=== PATIENT | female | born 1945 | race Caucasian/White ===

== ENCOUNTER 2021-01-18 15:00 | Emergency (ER) | payer MEDICARE, OTHER, SELFPAY ==
--- NOTE | 2021-01-18 15:06 | CTR_ITS ---
PROCEDURE INFORMATION: Exam: CT Cervical Spine Without Contrast Exam date and time: 01/18/2021 3:51 PM Age: 75 years old Clinical indication: Injury or trauma; Fall; Blunt trauma; Additional info: Neck pain following fall TECHNIQUE: Imaging protocol: Computed tomography images of the cervical spine without contrast. Radiation optimization: All CT scans at this facility use at least one of these dose optimization techniques: automated exposure control; mA and/or kV adjustment per patient size (includes targeted exams where dose is matched to clinical indication); or iterative reconstruction. COMPARISON: No relevant prior studies available. RADIATION DOSE METRICS: Total DLP (mGy-cm): 489.84 FINDINGS: Vertebrae: No acute fractures. No traumatic malalignment. Significant multilevel facet joint arthritis throughout the cervical spine worse on the left than the right. Mild anterolisthesis C4 on C5 and C5 on C6 secondary to facet joint arthritis about 2-3 mm at each level. Severe disc height loss at C6-C7 with vertebral endplate irregularities. No focal aggressive bone lesion. Soft tissues: Unremarkable. Lungs: Lung apices are normal. CT/CT cervical spin wo con* [id number] IMPRESSION: Negative for acute cervical spine fracture. Radiation Dose CTDIVOL = (mGy): DLP = 489.84 (mGy-cm)
--- NOTE | 2021-01-18 15:06 | XR_ITS ---
WS: [id number] Exam: XR hip LT 2-3V wo/w pel* [id number] Date/Time of Exam: 01/18/2021 3:52 PM Reason For Exam: fall/pain No fracture or dislocation. Moderate degenerative narrowing of the joint compartment. Normal soft tis sues. XR/XR hip LT 2-3V wo/w pel* [id number] IMPRESSION: 1. Moderate DJD. No fracture.
--- NOTE | 2021-01-18 15:06 | CTR_ITS ---
PROCEDURE INFORMATION: Exam: CT Lumbar Spine Without Contrast Exam date and time: 01/18/2021 3:51 PM Age: 75 years old Clinical indication: Injury or trauma; Fall; Blunt trauma (contusions or hematomas); Additional info: Pain following fall TECHNIQUE: Imaging protocol: Computed tomography images of the lumbar spine without contrast. Radiation optimization: All CT scans at this facility use at least one of these dose optimization techniques: automated exposure control; mA and/or kV adjustment per patient size (includes targeted exams where dose is matched to clinical indication); or iterative reconstruction. COMPARISON: No relevant prior studies available. RADIATION DOSE METRICS: Total DLP (mGy-cm): 2234.81 FINDINGS: Vertebrae: Severe diffuse arthritis of lumbar spine facet joints. No vertebral body fractures. No loss of vertebral body height. Lumbar spinal alignment is unremarkable. No aggressive bone lesion. L1-L2: No significant disc protrusion. No severe spinal canal stenosis. No significant neural foraminal narrowing. L2-L3: No significant disc protrusion. No spinal canal stenosis. No neural foraminal narrowing. L3-L4: No significant disc protrusion. No severe spinal canal stenosis. No significant neural foraminal narrowing. L4-L5: No significant disc protrusion. No severe spinal canal stenosis. No significant neural foraminal narrowing. L5-S1: No significant disc protrusion. No severe spinal canal stenosis. No significant neural foraminal narrowing. Vasculature: Moderate scattered atherosclerotic wall plaque abdominal aorta without aneurysm. Soft tissues: No lumbar paraspinal intramuscular hematoma. CT/CT lumbar spine wo con* [id number] IMPRESSION: Negative for acute lumbar spine fracture. Radiation Dose CTDIVOL = (mGy): DLP = 2234.81 (mGy-cm)
[2021-01-18 15:10] VITALS: BP 151/84; PULSE 68; RESP 16; TEMP 36.7; O2SAT 95; BMI 24.9
--- NOTE | 2021-01-18 16:02 | XR_ITS ---
WS: [id number] Exam: XR chest 1V portable [id number] Date/Time of Exam: 01/18/2021 4:09 PM Reason For Exam: dyspnea/cough Comparison 08/09/2017. The lungs are clear and fully expanded. Unremarkable cardiomediastinal structures and regional bony e lements. No pleural effusions. XR/XR chest 1V portable [id number] IMPRESSION: 1. No acute cardiopulmonary finding.
--- NOTE | 2021-01-18 16:02 | ECG_ITS ---
[facility] Test Date: 2021-01-18 Pat Name: Patt Ricks Department: Room: Gender: Female Service Desk Technician: : 1945 Requested By: Ross Schwarz Order Number: [id number] Reading MD: RUY WILLIS Measurements Intervals Elora Rate: 73 P: 48 SC: 196 QRS: -33 QRSD: 83 T: 48 QT: 400 QTc: 441 Interpretive Statements SINUS RHYTHM MARKED LEFT AXIS DEVIATION [QRS AXIS < -30] LOW QRS VOLTAGE IN PRECORDIAL LEADS [QRS DEFLECTION < 1.0 mV IN CHEST LEADS] MINIMAL VOLTAGE CRITERIA FOR LVH, CONSIDER NORMAL VARIANT [MEETS CRITERIA IN ONE OF: R(aVL), S(V1), R(V5), R(V5/V6)+S(V1)] POSSIBLE ANTERIOR MYOCARDIAL INFARCTION [30 ms Q WAVE IN V3/V4, OR R < 0.2 mV IN V4], PROBABLY OLD Compared to ECG 08/09/2017 01:05:45 Left-axis deviation now present Low QRS voltage now present Myocardial infarct finding still present Electronically Signed On 01-18-2021 20:07:26 COORDINATOR OF GENETIC SERVICES by RUY WILLIS [id number]
[2021-01-18 16:04] VITALS: O2SAT 97
--- NOTE | 2021-01-18 17:00 | ED_ITS ---
HPI - Fall General: Chief Complaint: Fall Stated Complaint: fall, left hip, lower back , neck pain Time Seen by Provider: 01/18/21 15:38 History of Present Illness: HPI Narrative: 75-year-old female who slipped and fell on the ice last week. She states she was able to get in until today. She has some back pain where she landed on the ice is painful when she takes a deep breath. She did strike her head she did not get knocked out there is no loss of consciousness. She is otherwise been ambulatory without difficulty. Also complaining some hip pain. Is not on any anticoagulants on a long-term basis. MD complaint: fall Onset (ago): day(s) Fall from: standing Fall witnessed: no Place fall occurred: home Loss of consciousness: None Context: tripped/slipped Location of injury: back and pelvis Severity: mild Associated symptoms-after fall: Reports chest pain (With inspiration); Denies abdominal pain, confusion, difficulty walking, headache(s), hematuria, lightheadedness, neck pain, numbness, short of breath, vertigo or weakness Review of Systems Const: Denies: fever(s), chills, body aches, change in appetite, fatigue or malaise ENMT: Denies: throat pain, ear or mastoid pain, nasal discharge or nasal congestion Card: Reports: chest pain (With inspiration); Denies: lightheadedness Resp: Denies: dyspnea, productive cough or non-productive cough GI: Denies: abdominal pain : Denies: hematuria Musc: Denies: neck pain Skin/Breast: Denies: rash or pruritus Neuro: Denies: headache(s), difficulty walking, vertigo or confusion PFSH ED PFSH: Medical History GERD (gastroesophageal reflux disease) History of [place] (myocardial infarction) Surgical History H/O esophagogastroduodenoscopy History of appendectomy History of hysterectomy History of skin graft History of tonsillectomy Status post colonoscopy Family History Mother Stroke Hypertension CAD (coronary artery disease) Diabetes Father Cancer Social History Smoking and tobacco status: former smoker Second hand smoke exposure: No Smoking risk assessment/counseling performed?: No Alcohol intake: current Alcohol intake frequency: holidays/special occasions only Alcohol type: wine Adopted: No Caregiver/support person: No Lives independently: Yes Marital status: / Physical Exam Const: COMMON NORMALS: no acute distress GENERAL APPEARANCE: cooperative and comfortable ORIENTATION/CONSCIOUSNESS: Yes oriented to person, Yes oriented to place and Yes oriented to time HENMT: COMMON NORMALS: normocephalic, atraumatic and hearing grossly normal bilaterally HEAD & SCALP: normocephalic and atraumatic Eye: COMMON NORMALS: Equal, round and reactive pupils present, EOMs intact bilaterally, conjunctivae normal and no scleral icterus CONJUNCTIVA: Yes conjunctivae normal PUPIL: Yes Equal, round and reactive pupils present Neck/C-Spine: COMMON NORMALS: full ROM, no lymphadenopathy, supple and no JVD Resp: COMMON NORMALS: normal respiratory effort, No retractions, No use of a ccessory muscles and clear to auscultation bilaterally AUSCULTATION: clear to auscultation bilaterally Cardio: COMMON NORMALS: no JVD, regular rate, regular rhythm and No murmurs present (Cardio) RATE: regular rate RHYTHM: regular rhythm GI: COMMON NORMALS: Soft to palpation and No hepatosplenomegaly present AUSCULTATION: Yes normoactive bowel sounds PALPATION: Yes Soft to palpation, No Tenderness to palpation present (GI), No Guarding due to palpation present (GI) and Yes No hepatosplenomegaly present Extremity: COMMON NORMALS: normal to inspection, capillary refill normal, no clubbing, cyanosis or edema, no calf tenderness and no pedal edema Neuro: SENSORIUM/ORIENTATION: Yes oriented to person, Yes oriented to place and Yes oriented to time Skin: COMMON NORMALS: no rashes or lesions noted GENERAL SKIN EXAM: no rashes or lesions noted Course Vital Signs: Vital signs: Vital Signs Temperature 98.1 F 01/18/21 15:10 Pulse Rate 75 01/18/21 18:13 Respiratory Rate 17 01/18/21 17:02 Blood Pressure 156/94 01/18/21 18:13 Pulse Oximetry 96 01/18/21 18:13 MDM - Fall MDM Narrative: Medical decision making narrative: Reviewed imaging with patient no acute fracture noted will treat with anti-inflammatories rest ice activity as tolerated follow-up as needed Lab Data: Labs: Lab Results 01/18/21 01/18/21 01/18/21 Range/Units 16:55 16:55 16:55 WBC 7.9 (4.0-10.0) 10^3/ uL RBC 4.37 (4.1-5.3) 10^6/u L Hgb 12.9 (11.5-15.3) g/dL Hct 40.6 (37.0-47.0) % MCV 92.9 (81-99) fL MCH 29.5 (28.0-34.0) pg MCHC 31.8 (30.0-36.0) g/dL RDW 12.3 (12.1-15.1) % Plt Count 262 (130-400) 10^3/c mm MPV 9.9 (7.4-10.4) fL Neut % (Auto) 54.7 % Lymph % (Auto) 29.7 % [place] % (Auto) 9.8 % Eos % (Auto) 4.9 % Baso % (Auto) 0.5 % Neut # (Auto) 4.31 (1.8-7.7) 10^3/u L Lymph # (Auto) 2.3 (0.8-4.8) 10^3/u L [place] # (Auto) 0.8 (0.2-0.9) 10^3/u L Eos # (Auto) 0.4 (0.0-0.8) 10^3/u L Baso # (Auto) 0.0 (0.0-0.1) 10^3/u L Nucleated RBC % (a uto) 0 % Nucleated RBCs # 0.0 /100WBC Sodium 142 (136-145) mmol/L Potassium 3.9 (3.5-5.1) mmol/L Chloride 105 (98-107) mmol/L Carbon Dioxide 29 (22-29) mmol/L Anion Gap 11.9 (5-19) BUN 22 (8-23) mg/dL Creatinine 0.7 (0.5-0.9) mg/dL GFR Calculation Not Reportable Glucose 92 (65-115) mg/dL Calculated Osmolal ity 297 H (285-295) mOsm/k g Calcium 8.9 (8.5-10.5) mg/dL Troponin T Baselin e 6 (0-10) ng/L Discharge Plan Discharge Patient Disposition: Home Clinical Impression: Fall, Back pain Condition: Stable Prescriptions: New diclofenac sodium 75 mg tablet,delayed release (DR/EC) 75 mg PO Q12H PRN (Reason: pain) Qty: 20 RF: 0 No Action aspirin 325 mg Tablet 325 mg PO Q6H PRN (Reason: chest pains/headache) RF: 0 biotin 1,000 mcg Tablet,Chewable 1,000 mcg PO DAILY RF: 0 [place] 3 Fish Oil 1 cap PO DAILY RF: 0 magnesium 1 tab PO DAILY RF: 0 Discharge Orders: Discharge ED (Routine); Ordered 01/18/21 Ordered By: Ross Higuera Referrals: Kendrick Vargas MD [Primary Care Provider] - Discharge Diet: Usual diet Discharge Activity: Increase activity as tolerated Patient Instructions: Opioid Safety Coding Level of Care Code ED Spindle Sander for Estefanig Fwd Exam Comprehensive
[2021-01-18 17:02] VITALS: BP 169/84; PULSE 71; RESP 17; O2SAT 96
[2021-01-18 17:16] LABS: Basophils % 0.5 %; Eosinophils # 0.4 10^3/uL (0.0-0.8); Eosinophils % 4.9 %; Hematocrit 40.6 % (37.0-47.0); Hemoglobin 12.9 g/dL (11.5-15.3); Lymphocytes # 2.3 10^3/uL (0.8-4.8); Lymphocytes % 29.7 %; Mean Corpuscular HGB Conc 31.8 g/dL (30.0-36.0); Mean Corpuscular Hemoglobin 29.5 pg (28.0-34.0); Mean Corpuscular Volume 92.9 fL (81-99); Mean Platelet Volume 9.9 fL (7.4-10.4); Monocytes # 0.8 10^3/uL (0.2-0.9); Monocytes % 9.8 %; Neutrophils # 4.31 10^3/uL (1.8-7.7); Neutrophils % 54.7 %; Nucleated Red Blood Cells % 0 %; Platelet Count 262 10^3/cmm (130-400); Red Blood Count 4.37 10^6/uL (4.1-5.3); Red Cell Distribution Width 12.3 % (12.1-15.1); White Blood Count 7.9 10^3/uL (4.0-10.0)
[2021-01-18 17:38] LABS: Troponin(5th) Baseline 6 ng/L (0-10)
[2021-01-18 17:39] LABS: Anion Gap 11.9 (5-19); Blood Urea Nitrogen 22 mg/dL (8-23); Calcium 8.9 mg/dL (8.5-10.5); Carbon Dioxide 29 mmol/L (22-29); Chloride 105 mmol/L (98-107); Glucose 92 mg/dL (65-115); Osmolality Calculated 297 mOsm/kg (285-295); Potassium 3.9 mmol/L (3.5-5.1); Sodium 142 mmol/L (136-145)
[2021-01-18 18:13] VITALS: BP 156/94; PULSE 75; O2SAT 96
== END 2021-01-18 18:15 | disposition home or self-care (01) ==
PROVIDERS: Emergency Provider Family Medicine; PCP Family Medicine
DX: M54.9 Dorsalgia, unspecified (principal); Z79.82 Long term (current) use of aspirin; I25.2 Old myocardial infarction; Z87.891 Personal history of nicotine dependence
CPT/HCPCS: 36415; 71045; 72125; 72131; 73502; 80048; 84484; 85025; 93005; 99283

== ENCOUNTER → 2021-05-23 13:35 | Outpatient (BNVA) | payer MEDICARE, OTHER, SELFPAY | PROVIDERS: PCP Family Medicine; Visit Provider Nurse Practitioner Family | DX: J06.9 Acute upper respiratory infection, unspecified (principal); Z20.822 Contact with and (suspected) exposure to COVID-19 | CPT/HCPCS: 87635 ==

== ENCOUNTER 2021-05-30 05:34 | Outpatient (CLI) | payer MEDICARE, OTHER, SELFPAY ==
[2021-05-30 06:30] VITALS: BP 190/93; PULSE 54; RESP 15; TEMP 36.6; O2SAT 95; BMI 22.4
--- NOTE | 2021-05-30 06:51 | W.ED.GENADLT ---
HPI - General Adult General: Source: patient Mode of arrival: ambulatory Limitations: no limitations History of Present Illness: HPI narrative: Patient is here for Covid infusion. Patient reports she was diagnosed with COVID-19 on May 23. She denies any fever today. She did have fever in the first few days of illness. Onset (ago): day(s) (On May 23) Severity: mild Relieving factors: none Exacerbating factors: none Associated symptoms: Reports cough Review of Systems Const: Reports: body aches Resp: Reports: non-productive cough PFSH ED PFSH: Medical History GERD (gastroesophageal reflux disease) History of [place] (myocardial infarction) Surgical History H/O esophagogastroduodenoscopy History of appendectomy History of hysterectomy History of skin graft History of tonsillectomy Status post colonoscopy Family History Mother Stroke Hypertension CAD (coronary artery disease) Diabetes Father Cancer Sister Atrial fibrillation Social History Smoking and tobacco status: never smoked Second hand smoke exposure: No Smoking risk assessment/counseling performed?: No Alcohol intake: current Alcohol intake frequency: holidays/special occasions only Alcohol type: wine Adopted: No Caregiver/support person: No Lives independently: Yes Marital status: / Physical Exam Const: COMMON NORMALS: no acute distress, patient oriented x3, no limitations and well nourished (Blood pressure 176/86. Oxygen saturation 95% on room air.) GENERAL APPEARANCE: cooperative HENMT: COMMON NORMALS: normocephalic and atraumatic HEAD & SCALP: normocephalic and atraumatic FACE & SINUS: normal facial exam Eye: COMMON NORMALS: EOMs intact bilaterally Neck/C-Spine: COMMON NORMALS: full ROM, no lymphadenopathy, supple and no meningeal signs GENERAL: Yes normal visual inspection Lymph: LYMPHATIC: no lymphadenopathy noted Chest: COMMONS NORMALS: normal inspection of the chest and normal palpation of entire chest wall CHEST: No Ecchymosis present and No rash Resp: COMMON NORMALS: normal respiratory effort (No respiratory distress), No retractions, No use of accessory muscles and clear to auscultation bilaterally EFFORT & INSPECTION: No respiratory distress AUSCULTATION: clear to auscultation bilaterally Cardio: COMMON NORMALS: regular rate, regular rhythm and Peripheral pulses 2+ throughout JUGULAR VENOUS DISTENTION: no JVD RATE: regular rate RHYTHM: regular rhythm PERIPHERAL PULSES: Peripheral pulses 2+ throughout GI: COMMON NORMALS: Normal to inspection, nondistended, normoactive bowel sounds present and non-tender : COMMON NORMALS: Yes no CVA tenderness BLADDER/KIDNEY EXAM: Yes no CVA tenderness Back/Pelvis: COMMON NORMALS: no CVA tenderness Extremity: COMMON NORMALS: normal to inspection, full ROM and capillary refill normal Neuro: COMMON NORMALS: patient oriented x3, CN's II-XII intact bilaterally, no focal motor deficits and no sensory deficits noted MENINGEAL SIGNS: Yes no meningeal signs Psych: COMMON NORMALS: mental status grossly normal and Normal thought process present THOUGHT PROCESS: Normal thought process present Skin: COMMON NORMALS: no rashes or lesions noted and no wounds GENERAL SKIN EXAM: no rashes or lesions noted Course Vital Signs: Vital signs: Vital Signs Temperature 98 F 05/30/21 06:30 Pulse Rate 54 L 05/30/21 06:30 Respiratory Rate 15 05/30/21 06:30 Blood Pressure 190/93 05/30/21 06:30 Pulse Oximetry 95 05/30/21 06:30 MDM - General Adult MDM Narrative: Medical decision making narrative: Patient is cleared for Covid infusion. Discharge Plan Discharge Patient Disposition: Home Prescriptions: No Action erythromycin 5 mg/gram (0.5 %) ointment 1 applic ophthalmic (eye) DAILY RF: 0 Discharge Orders: Discharge Order (Routine); Ordered 05/30/21 Ordered By: Dewey Lennon Referrals: Kendrick Vargas MD [Primary Care Provider] - Activity: Increase activity as tolerated Patient Instructions: Viral Syndrome - Adult Activity Restrictions/Additional Instructions: Follow-up with your doctor as needed. Return if problems. Coding Level of Care Code ED Lens Grinder And Polisher for Chg Fwd Exam Comprehensive
[2021-05-30 07:27] VITALS: BP 165/84; PULSE 64; O2SAT 96
[2021-05-30 07:59] VITALS: BP 168/75; PULSE 59; RESP 21; O2SAT 98
[2021-05-30 08:32] VITALS: BP 159/78; PULSE 63; RESP 16; O2SAT 96
[2021-05-30 09:13] VITALS: BP 177/85; PULSE 63; TEMP 36.8; O2SAT 98
[2021-05-30 09:14] VITALS: BP 177/85; PULSE 63; RESP 18; TEMP 36.8; O2SAT 98
--- NOTE | 2021-06-01 15:11 | DCPLANNER ---
social services manager had message that patient received the BAM infusion. social services manager called patient to see how patient was feeing after receiving the infusion. Patient stated that she is feeling better, she is doing ok. Patient stated that she had diarrhea, but she is doing better. Patient stated that she does not have a fever, she still has a slight headache, she is still really weak. Patient stated that she still gets tired very easily. But overall she is feeling better.
== END 2021-05-30 09:21 | disposition home or self-care (01) ==
PROVIDERS: PCP Family Medicine; Visit Provider Nurse Practitioner Family
DX: U07.1 COVID-19 (principal)
CPT/HCPCS: 96365

== ENCOUNTER 2021-06-09 13:29 | Emergency (ER) | payer MEDICARE, OTHER, SELFPAY ==
[2021-06-09 14:16] VITALS: BP 171/95; PULSE 65; RESP 16; TEMP 36.8; O2SAT 97; BMI 22.1
[2021-06-09 17:41] VITALS: PULSE 53; RESP 14; O2SAT 94
--- NOTE | 2021-06-09 17:42 | ED_ITS ---
HPI - Allergic Reaction General: Chief complaint: Allergic Reaction Stated complaint: POSS ALLERGIC REACTION IV INFUSION/COVID Time Seen by Provider: 06/09/21 17:18 History of Present Illness: HPI narrative: 75-year-old female who presents to the emergency room with complaint of redness around her began this morning she did put some topical erythromycin ointment on that she had for her eyes put her on her eyelids and it actually worsened she is taken some Benadryl. She relates it to a antibody infusion that she had several weeks ago. She is not had any wheezing her throat has been dry though. She has no stridor no wheeze no other rash anywhere. She had what she describes as some itching and a little bit of epistaxis a day or so ago. Has not recurred today. MD complaint: facial swelling Onset (ago): hour(s) Exposure: medication Associated symptoms: Reports hoarseness and itching; Deny difficulty breathing, dysphagia, facial swelling, lip swelling, nausea, rash, tongue swelling or vomiting Severity: mild Treatment prior to arrival: benadryl Review of Systems Const: Denies: fever(s), chills, body aches, change in appetite, fatigue or malaise ENMT: Reports: hoarseness Card: Denies: chest pain, edema, dyspnea on exertion or orthopnea Resp: Denies: dyspnea, productive cough or non-productive cough GI: Denies: nausea, vomiting or dysphagia : Denies: flank pain, difficulty voiding, dysuria, urinary frequency or urinary urgency All/Imm: Denies: tongue swelling or facial swelling PFSH ED PFSH: Medical History GERD (gastroesophageal reflux disease) History of [place] (myocardial infarction) Surgical History H/O esophagogastroduodenoscopy History of appendectomy History of hysterectomy History of skin graft History of tonsillectomy Status post colonoscopy Family History Mother Stroke Hypertension CAD (coronary artery disease) Diabetes Father Cancer Sister Atrial fibrillation Social History Smoking and tobacco status: never smoked Second hand smoke exposure: No Smoking risk assessment/counseling performed?: No Alcohol intake: current Alcohol intake frequency: holidays/special occasions only Alcohol type: wine Adopted: No Caregiver/support person: No Lives independently: Yes Marital status: / Physical Exam Const: COMMON NORMALS: no acute distress GENERAL APPEARANCE: cooperative and comfortable ORIENTATION/CONSCIOUSNESS: Yes awake, Yes oriented to person, Yes oriented to place and Yes oriented to time HENMT: COMMON NORMALS: normocephalic, atraumatic, hearing grossly normal bilaterally, external ears normal, EAC's normal, TM's normal bilaterally, Normal nasal mucous membranes and turbinates present, moist oral mucous membranes and oropharynx normal HEAD & SCALP: normocephalic and atraumatic NOSE: Normal nasal mucous membranes and turbinates present EXTERNAL EAR: Yes external ears normal EXTERNAL AUDITORY CANAL: EAC's normal TYMPANIC MEMBRANE: TM's normal bilaterally Eye: COMMON NORMALS: Equal, round and reactive pupils present, EOMs intact bilaterally, conjunctivae normal and no scleral icterus CONJUNCTIVA: Yes conjunctivae normal PUPIL: Yes Equal, round and reactive pupils present Neck/C-Spine: COMMON NORMALS: full ROM, no lymphadenopathy, supple and no JVD Lymph: LYMPHATIC: no lymphadenopathy noted and no lymphedema noted Resp: COMMON NORMALS: normal respiratory effort, No retractions, No use of accessory muscles and clear to auscultation bilaterally AUSCULTATION: clear to auscultation bilaterally Cardio: COMMON NORMALS: no JVD, regular rate, regular rhythm and No murmurs present (Cardio) RATE: regular rate RHYTHM: regular rhythm GI: COMMON NORMALS: Soft to palpation and No hepatosplenomegaly present AUSCULTATION: Yes normoactive bowel sounds PALPATION: Yes Soft to palpation, No Tenderness to palpation present (GI), No Guarding due to palpation present (GI) and Yes No hepatosplenomegaly present Extremity: COMMON NORMALS: normal to inspection, capillary refill normal, no clubbing, cyanosis or edema, no calf tenderness and no pedal edema Neuro: SENSORIUM/ORIENTATION: Yes oriented to person, Yes oriented to place and Yes oriented to time Skin: NARRATIVE SKIN EXAM: Mild inflammation can what appears to be a contact dermatitis around the upper and lower eyelids and one small area at the corner of the right side of the mouth no other skin lesions no hives no other rash anyw here else. Course Vital Signs: Vital signs: Vital Signs Temperature 98.3 F 06/09/21 14:16 Pulse Rate 54 L 06/09/21 18:14 Respiratory Rate 14 06/09/21 17:41 Blood Pressure 171/95 06/09/21 14:16 Pulse Oximetry 97 06/09/21 18:14 MDM - Allergic Reaction MDM Narrative: Medical decision making narrative: Contact eyelid dermatitis avoid the topical erythromycin that she did earlier today use the Elidel very sparingly twice daily in the affected areas if not improving follow-up with your Derm. Discharge Plan Discharge Patient Disposition: Home Clinical Impression: Contact dermatitis Condition: Stable Prescriptions: New Elidel 1 % cream 1 applic topical BID Qty: 30 RF: 0 No Action erythromycin 5 mg/gram (0.5 %) ointment 1 applic ophthalmic (eye) DAILY RF: 0 Discharge Orders: Discharge ED (Routine); Ordered 06/09/21 Ordered By: Ross Higuera Referrals: Kendrick Vargas MD [Primary Care Provider] - Discharge Diet: Usual diet Discharge Activity: Resume usual activity Patient Instructions: Opioid Safety Coding Level of Care Code ED Knitting Machine Tender for Gloria Fitzgerald
[2021-06-09 18:14] VITALS: PULSE 54; O2SAT 97
== END 2021-06-09 18:14 | disposition home or self-care (01) ==
PROVIDERS: Emergency Provider Family Medicine; PCP Family Medicine
DX: L25.9 Unspecified contact dermatitis, unspecified cause (principal); I25.2 Old myocardial infarction
CPT/HCPCS: 99281

== ENCOUNTER 2022-02-19 06:38 | Outpatient (CLI) | payer MEDICARE, OTHER, SELFPAY ==
--- NOTE | 2022-02-19 07:00 | USCV_ITS ---
Patt Ricks Age: 76 Gender: F : 1945 Exam Date: 02/19/2022 06:52 Ordering Phys: Suri Huerta MD ([email or web address]) Technologist: Lynda Jessica Exam Location: [facility] [place] Indication: NONRHEUMATIC MITRAL VALVE INSUFF BP: 131 / 70 HR: 51 Rhythm: Sinus Technical Quality: Adequate MEASUREMENTS (Male / Female) Normal Values 2D ECHO LV Diastolic Diameter PLAX 5.0 cm 4.2 - 5.9 / 3.9 - 5.3 cm LV Systolic Diameter PLAX 3.0 cm IVS Diastolic Thickness 1.1 cm 0.6 - 1.0 / 0.6 - 0.9 cm IVS Systolic Thickness 1.8 cm LVPW Diastolic Thickness 1.2 cm 0.6 - 1.0 / 0.6 - 0.9 cm LVPW Systolic Thickness 1.6 cm LVOT Diameter 2.0 cm LV Ejection Fraction 2D Teich 69.2 % LV Ejection Fraction MOD 2C 77.2 % LV Ejection Fraction 2C AL 77.5 % LA Diameter 3.0 cm LA Width 2.8 cm LA Height 4.2 cm RA Width 2.4 cm RA Height 4.6 cm Aorta at Sinotubular Diameter 2.6 cm M-MODE Aortic Annulus Diameter 3.0 cm LA Ao Ratio MM 1.0 MV E Point Septal Separation 0.3 cm DOPPLER AV Peak Velocity 144.3 cm/s LVOT Peak Velocity 112.0 cm/s AV Area Cont Eq vti 2.1 cm squared AV Area Cont Eq pk 2.5 cm squared MV Peak Velocity 109.0 cm/s MV Area PHT 4.8 cm squared Mitral E to A Ratio 0.9 MV E' Velocity 54.0 cm/s Mitral E to MV E' Ratio 9.9 Mitral E to LV E' Lateral Ratio 9.0 Mitral E to LV E' Septal Ratio 11.1 TR Peak Velocity 216.2 cm/s TR Peak Gradient 18.7 mmHg TR Mean Velocity 194.3 cm/s TR Mean Gradient 16.2 mmHg TR Velocity Time Integral 99.6 cm TV Peak E Velocity 57.0 cm/s Right Atrial Pressure 3.0 mmHg Pulmonary Artery Systolic Pressu 21.7 mmHg PV Peak Velocity 79.0 cm/s RV Acceleration Time 0.1 s RV Ejection Time 0.3 s RV AcT/ET 0.2 FINDINGS Left Ventricle Normal left ventricular size, systolic function and wall thickness, with no regional wall motion abnormalities. Left ventricular ejection fraction is estimated at 65 %. Normal diastolic function. Right Ventricle Normal right ventricular size and systolic function. Right ventricular systolic pressure 27 mmHg. Right Atrium Normal right atrial size. Right atrial pressure estimated at 3 mm Hg. Left Atrium Normal left atrial size. Mitral Valve Mildly thickened mitral valve. No mitral valve stenosis. Mild mitral valve regurgitation. Aortic Valve Structurally normal trileaflet aortic valve. No aortic valve stenosis. Trace aortic valve regurgitation. Tricuspid Valve Structurally normal tricuspid valve. No tricuspid valve stenosis. Mild tricuspid valve regurgitation. Pulmonic Valve Structurally normal pulmonic valve. No pulmonary valve stenosis. Trace pulmonary valve regurgitation. Pericardium No pericardial effusion. Aorta Normal size aortic root and proximal ascending aorta. Normal sized inferior vena cava with normal respiratory variation. CONCLUSIONS 1. Normal left ventricular size, systolic function and wall thickness, with no regional wall motion abnormalities. Left ventricular ejection fraction is estimated at 65 %. Normal diastolic function. 2. Normal right ventricular size and systolic function. 3. Pulmonary artery pressure estimated at 27 mm Hg. 4. Mild mitral and tricuspid valve regurgitation. 5. No significant change when compared to previous study dated 03/20/2019. Suri Huerta MD (Electronically Signed) Final Date: 19 February 2022 17:42 S
== END 2022-02-19 06:39 | disposition home or self-care (01) ==
LOC: RAD 06:39
PROVIDERS: PCP Family Medicine; Visit Provider Internal Medicine Cardiovascular Disease
DX: I08.1 Rheumatic disorders of both mitral and tricuspid valves
CPT/HCPCS: 93306

== ENCOUNTER → 2022-05-08 10:45 | Outpatient (BNVA) | payer MEDICARE, OTHER, SELFPAY | PROVIDERS: PCP Family Medicine; Visit Provider Internal Medicine Cardiovascular Disease | DX: I11.9 Hypertensive heart disease without heart failure (principal); R06.02 Shortness of breath; I34.0 Nonrheumatic mitral (valve) insufficiency; I25.2 Old myocardial infarction; I49.9 Cardiac arrhythmia, unspecified; K21.9 Gastro-esophageal reflux disease without esophagitis; R00.2 Palpitations | CPT/HCPCS: 99214 ==

== ENCOUNTER → 2022-05-23 08:44 | Outpatient (BNVA) | payer MEDICARE, OTHER, SELFPAY | PROVIDERS: PCP Family Medicine; Visit Provider Internal Medicine Cardiovascular Disease | DX: R00.2 Palpitations (principal); I25.2 Old myocardial infarction; I48.91 Unspecified atrial fibrillation; I47.1 Supraventricular tachycardia | CPT/HCPCS: 93246 ==

== ENCOUNTER → 2022-09-04 10:39 | Outpatient (BNVA) | payer MEDICARE, OTHER, SELFPAY | PROVIDERS: PCP Family Medicine; Visit Provider Internal Medicine Cardiovascular Disease | DX: R06.02 Shortness of breath (principal); I48.91 Unspecified atrial fibrillation; I34.0 Nonrheumatic mitral (valve) insufficiency; I11.9 Hypertensive heart disease without heart failure; I25.2 Old myocardial infarction | CPT/HCPCS: 99214 ==

== ENCOUNTER → 2023-02-18 10:32 | Outpatient (BNVA) | payer MEDICARE, OTHER, SELFPAY | PROVIDERS: PCP Family Medicine; Visit Provider Podiatrist Foot & Ankle Surgery | DX: M20.42 Other hammer toe(s) (acquired), left foot (principal); L84 Corns and callosities; M20.41 Other hammer toe(s) (acquired), right foot | CPT/HCPCS: 99203 ==

== ENCOUNTER → 2023-09-03 10:46 | Outpatient (BNVA) | payer MEDICARE, OTHER, SELFPAY | PROVIDERS: PCP Family Medicine; Visit Provider Internal Medicine Cardiovascular Disease | DX: R07.9 Chest pain, unspecified (principal); I44.0 Atrioventricular block, first degree; I25.2 Old myocardial infarction; R06.02 Shortness of breath; I48.91 Unspecified atrial fibrillation; I10 Essential (primary) hypertension; I34.0 Nonrheumatic mitral (valve) insufficiency; I51.9 Heart disease, unspecified; K21.9 Gastro-esophageal reflux disease without esophagitis; R94.31 Abnormal electrocardiogram [ECG] [EKG] | CPT/HCPCS: 93005; 99214 ==

== ENCOUNTER → 2024-03-09 10:03 | Outpatient (BNVA) | payer MEDICARE, OTHER, SELFPAY | PROVIDERS: PCP Family Medicine; Visit Provider Nurse Practitioner Family | DX: I48.0 Paroxysmal atrial fibrillation (principal) | CPT/HCPCS: 99213 ==